=== PATIENT | male | born 1955 | race Two or more races ===

== ENCOUNTER 2022-06-14 10:59 | Emergency (ER) | payer OTHER, SELFPAY ==
--- NOTE | ~2022-06-14 | XR_ITS ---
EXAMINATION: XR KNEE, LEFT CLINICAL INFORMATION: Pain left knee. COMPARISON: None TECHNIQUE: Four views of the left knee. FINDINGS: No fracture or dislocation or destructive process. There is tricompartment osteoarthritis with marginal osteophytes from the femoral condyles and tibial plateau and patella. There is spurring at the quadriceps insertion patella. Small suprapatellar effusion is suggested. Hoffa's fat pad appears normal. There is no erosive change. There may be some fine meniscal chondrocalcinosis. XR/XR knee LT 4V IMPRESSION: -Tricompartment osteoarthritis. Small suprapatellar effusion. -No fracture or dislocation. No erosive changes.
[2022-06-14 11:24] VITALS: BP 152/92; PULSE 95; RESP 18; TEMP 36.6; O2SAT 99; BMI 26.6
--- NOTE | 2022-06-14 13:28 | ED.LOWEXIN ---
HPI - Extremity Injury (Lower) General Chief Complaint: Extremity Injury, Lower Stated Complaint: L knee pain Time Seen by Provider: 06/14/22 13:28 Source: patient Mode of arrival: ambulatory Limitations: no limitations History of Present Illness HPI Narrative: 67-year-old male with a history of chronic left knee pain with a reported history of tendon rupture in the left knee 7 years ago presents to the ER for acute on chronic left knee pain for the last 1.5 weeks. He reports the pain started when he was using a stationary bicycle at the gym. The pain is located on the medial aspect of his knee and is worse when he bends his knee or tries to bear weight. He has been using crutches at home. he reports in the past he had joint injections in the left knee when he lived in [place] with good effect. He has not had issues since he moved to [facility] and does not have an orthopedic doctor here. complaint: knee injury Onset (ago): week(s) Type of Injury: unknown Severity: moderate Severity scale (1-10): 7 Exacerbating factors: weight bearing, movement and palpation Associated symptoms: able to partially bear weight Other symptoms: none Related Data Previous Rx's Medication Instructions Recorded naproxen 500 mg tablet 500 mg PO BID PRN pain #20 tabs 06/14/22 Allergies Allergy/AdvReac Type Severity Reaction Status Date / Time Penicillins [PCN] Allergy Unknown Verified 06/14/22 11:29 Review of Systems Review of Systems: Constitutional: No Fever, No Chills Cardiovascular: No Chest Pain, No SOB Gastrointestinal: No Nausea, No Vomiting Musculoskeletal: + joint pain, No Myalgias Skin: No Skin Lesions, No rash Neuro: No Weakness, No Numbness, No Dizziness, No Headache Psych: No Anxiety/Panic, No Depression Heme/Lymph: No Bruising, No Lymphadenopathy Endocrine: No Polyuria, No Polydipsia PMFSH Social History Social History Advance Directives: No Advance Directives Information Provided: No Physical Exam Vital Signs: Vital Signs: Last Vital Signs Temp 97.9 F 06/14/22 11:24 Pulse 95 06/14/22 11:24 Resp 18 06/14/22 11:24 BP 152/92 H 06/14/22 11:24 Pulse Ox 99 06/14/22 11:24 O2 Del Method 06/14/22 11:24 BMI result Body Mass Index 26.6 Appearance: Alert. Oriented X3. No acute distress. HEENT: normal inspection CVS: Normal heart rate and rhythm. Pulses normal. Respiratory: No respiratory distress. Skin: Skin warm and dry. Normal skin color. Normal skin turgor. No rashes. Extremities: Minimal swelling of the superior aspect of the left knee. Tenderness along the medial joint line. Unable to passively bed to the knee. Decker in appropriate location, no patellar tendon tenderness. Unable to assess joint laxity. When patient sat at the edge of the bed he was able to dangle his knee at 90 degrees. Neuro: Oriented X 3. No motor deficit. No sensory deficit. Gait not tested due to pain Course Course Course Narrative: 67-year-old male presents to the ER for evaluation acute on chronic left knee pain. No traumatic or blunt injury. Minimal swelling on examination with pain upon active and passive bending. X-ray today showing tricompartmental osteoarthritis and a small suprapatellar effusion. Place an Daniel wrap for compression and support. He has his own crutches. Will refer to orthopedics for evaluation of possible joint injections and further evaluation. Patient agrees to plan. Stable for discharge home. Will start on NSAID in the meantime. Procedures Orthopedic Splinting/Casting Injury #1: Side: left Lower Extremity Injury Location: knee Lower Extremity Immobilizer: Daniel wrap Other Orthopedic Equipment: crutches Discharge Plan Discharge Clinical Impression: Effusion of knee, Knee osteoarthritis Patient Disposition: Home, Self-Care Instructions: Osteoarthritis (ED), Knee Pain (ED) Additional Instructions: Your x-ray showed tricompartment osteoarthritis and small suprapatellar effusion. Rest your knee and elevate your leg when possible. Recommend DANIEL wrap for support and compression. Use ice several times per day for the next 48 hours. You may bear weight as tolerated. If pain is too severe, use crutches until better. Take The prescribed anti-inflammatory pain medication as needed for pain. It was sent to the [facility] at [address] [place] [address]. Follow up with Orthopedics for further evaluation. Number below. Follow up with your doctor. If you develop new or worsening symptoms call 911 or come back to the ER for further evaluation. Prescriptions: New naproxen 500 mg tablet 500 mg PO BID PRN (Reason: pain) Qty: 20 0RF [place]: [facility] [place] [facility] [place] Group] ( Left knee try compartment osteoarthritis, small suprapatellar effusion, history of joint injection in the past with good effect.) Interventions: ED Discharge Assessment Last Done: 06/14/22 14:02 Discharge Date/Time: 06/14/22 14:04 Print Language: Lithuanian
== END 2022-06-14 14:04 | disposition home or self-care (01) ==
PROVIDERS: Emergency Provider Emergency Medicine
DX: M25.462 Effusion, left knee (principal); M17.12 Unilateral primary osteoarthritis, left knee; M25.562 Pain in left knee
CPT/HCPCS: 73564; 99282; 99283